=== PATIENT | male | born 1990 | race African-American/Black ===

== ENCOUNTER 2017-09-22 11:23 | Emergency (ER) | payer SELFPAY ==
[2017-09-22 11:31] VITALS: BMI 25.8
--- NOTE | 2017-09-22 12:25 | PDOC ---
History of Present Illness - General History Source: Patient Exam Limitations: No Limitations - History of Present Illness Initial Comments: 09/22/17 14:21 The patient is a 27 year old male, with no significant past medical history, who presents to the emergency department with, epigastric abdominal pain, vomiting and diarrhea for approx. one day. The patient reports he had old milk last night and the abdominal pain, nausea with vomiting and diarrhea began approx. 2 hours after. The patient reports vomiting approx. 8x and describes the vomit as non bloody, non bilious. The patent describes the epigastric abdominal pain as a sharp pain. The patient reports associated symptoms of back pain/ache secondary to the abdominal pain. The patient states he has been unable to tolerate foods and liquids without vomiting. The patient reports his mother has been recently ill for the past couples days with similar symptoms. He denies any recent fevers, chills, headache or dizziness. He denies any recent chest pain or shortness of breath. He denies any recent dysuria, frequency, urgency or hematuria. Allergies: NKA Primary Care Physician: Dr. Mook Purvis. <Dorian Mayberry - Last Filed: 09/22/17 15:03> <Jeramy Eng - Last Filed: 09/22/17 15:20> - General Chief Complaint: Pain, Acute Stated Complaint: ABD PAIN Time Seen by Provider: 09/22/17 11:59 Past History <Dorian Mayberry - Last Filed: 09/22/17 15:03> - Past Medical History Anemia: Yes CVA: No COPD: No DVT: No - Immunization History Immunization Up to Date: Yes - Suicide/Smoking/Psychosocial Hx Smoking History: Never smoked Have you smoked in the past 12 months: No Information on smoking cessation initiated: No Hx Alcohol Use: No Drug/Substance Use Hx: No Substance Use Type: None <Jeramy Eng - Last Filed: 09/22/17 15:20> - Past Medical History Allergies/Adverse Reactions: Allergies Allergy/AdvReac Type Severity Reaction Status Date / Time No Known Allergies Allergy Verified 09/22/17 11:27 Review of Systems - Review of Systems Comments:: 09/22/17 14:21 CONSTITUTIONAL: No reported: Fever, Chills, Diaphoresis, Generalized Weakness, Malaise, Loss of Appetite HEENT: No reported: Rhinorrhea, Nasal Congestion, Throat Pain, Throat Swelling, Difficulty Swallowing, Mouth Swelling, Ear Pain, Eye Pain, Visual Changes CARDIOVASCULAR: No reported: Chest Pain, Syncope, Palpitations, Irregular Heart Rate, Lightheadedness, Peripheral Edema RESPIRATORY: No reported: Cough, Shortness of Breath, SOB with Exertion, Orthopnea, Wheezing , Stridor, Hemoptysis GASTROINTESTINAL: Present: +Epigastric abdominal pain. +Nausea. +Vomiting. +Diarrhea. No reported: Abdominal Distension, Constipation, Melena, Hematochezia GENITOURINARY: No reported: Dysuria, Frequency, Urgency, Hesitancy, Flank Pain, Genital Pain MUSCULOSKELETAL: Present: +Back pain No reported: Myalgia, Arthralgia, Joint Swelling, Neck Pain SKIN: No reported: Rash, Itching, Pallor HEMEATOLOGIC/IMMUNOLOGIC: No reported: Easy Bleeding, Easy Bruising, Lymphadenopathy, Frequent infections ENDOCRINE: No reported: Unexplained Weight Gain, Unexplained Weight Loss, Heat Intolerance , Cold Intolerance NEUROLOGIC: No reported: Headache, Focal Weakness, Paresthesias, Vertigo, Lightheadedness, Unsteady Gait, Seizure, Mental Status Changes, Incontinence PSYCHIATRIC: No reported: Anxiety, Depression <Dorian Mayberry - Last Filed: 09/22/17 15:03> *Physical Exam - Vital Signs Last Vital Signs Temp Pulse Resp BP Pulse Ox 98.0 F 78 16 142/80 100 09/22/17 11:27 09/22/17 11:27 09/22/17 11:27 09/22/17 11:27 09/22/17 11:27 - Physical Exam Comments: 09/22/17 14:22 GENERAL: +Appears uncomfortable. The patient is awake, alert, and fully oriented. HEAD: Normocephalic, atraumatic. EYES: extraocular movements intact, sclera anicteric, conjunctiva clear. ENT: Normal voice, Moist mucous membranes. NECK: Normal range of motion, supple LUNGS: Breath sounds equal, clear to auscultation bilaterally. No wheezes, no rhonchi, no rales. HEART: Regular rate and rhythm, without murmur, rub or gallop. ABDOMEN: +Tenderness to the epigastric region. Soft, normoactive bowel sounds. No guarding, no rebound.No CVA tenderness EXTREMITIES: Normal range of motion, no edema. No clubbing or cyanosis. No cords, erythema, or tenderness. NEUROLOGICAL: No facial assymetry, Normal speech, PSYCH: Normal mood, normal affect. SKIN: Warm, Dry, normal turgor, <Dorian Mayberry - Last Filed: 09/22/17 15:03> - Vital Signs Last Vital Signs Temp Pulse Resp BP Pulse Ox 98.0 F 78 16 142/80 100 09/22/17 11:27 09/22/17 11:27 09/22/17 11:27 09/22/17 11:27 09/22/17 11:27 <Jeramy Eng - Last Filed: 09/22/17 15:20> ED Treatment Course - LABORATORY CBC & Chemistry Diagram: 09/22/17 12:55 09/22/17 12:55 - ADDITIONAL ORDERS Additional order review: Laboratory Results 09/22/17 12:55 Sodium 140 Potassium 5.1 Chloride 106 Carbon Dioxide 28 Anion Gap 6 L BUN 12 Creatinine 1.0 Creat Clearance w eGFR > 60 Random Glucose 99 Calcium 9.2 Total Bilirubin 1.9 H AST 89 H ALT 117 H Alkaline Phosphatase 83 Total Protein 8.7 H Albumin 4.7 Lipase 161 09/22/17 12:55 RBC 5.81 H MCV 83.3 MCHC 32.4 RDW 13.1 MPV 7.2 L Neutrophils % 89.3 H Lymphocytes % 7.0 L Monocytes % 3.2 L Eosinophils % 0.2 Basophils % 0.3 - RADIOLOGY Radiograph Interpretation: 09/22/17 15:03 EXAM#: TYPE/EXAM: RESULT: [id number] US/ABDOMEN US -LIMITED EXAM: Right upper quadrant abdominal sonogram. INDICATION: Abdominal pain. TECHNIQUE: Real-time grayscale and color Doppler sonogram of the right upper quadrant was performed by the technologist. Images are submitted for review. COMPARISON: None available. FINDINGS: The liver is normal in size measuring 16 cm in length with normal hepatic echotexture. No discrete hepatic mass lesion identified. The portal vein is patent, where imaged, with hepatopedal flow. The gallbladder is not hydropic. No evidence of cholelithiasis, gallbladder wall thickening or pericholecystic fluid. The technologist reports a negative sonographic Pinzon sign. There is no evidence of intrahepatic or extrahepatic biliary ductal dilatation. The proximal common bile duct measures 3 mm in diameter. The visualized portions of the pancreatic head and body are grossly unremarkable. The pancreatic tail is obscured by bowel gas and cannot be assessed. The right kidney is normal in size, measuring 10.7 cm in thickness with normal cortical echotexture. No hydronephrosis or shadowing calculus identified within the right kidney. CT is more sensitive in detecting small renal calculi. The upper abdominal aorta and intrahepatic IVC are grossly unremarkable, where imaged. No free fluid identified in the right upper quadrant of the abdomen. IMPRESSION: No evidence of cholelithiasis, acute cholecystitis or biliary ductal dilatation. Reported By: Alex Mendez DO - Medications Given in the ED: ED Medications Discontinued Medications Generic Name Dose Route Start Last Admin Trade Name Freq PRN Reason Stop Dose Admin Al Hydroxide/Mg Hydroxide 30 ml 09/22/17 12:32 09/22/17 12:50 Mylanta Suspension - PO 09/22/17 12:33 30 mg ONCE ONE Administration Famotidine/Sodium Chloride 20 50 mls @ 100 mls/hr 09/22/17 12:32 09/22/17 13: 11 mg/ Miscellaneous IVPB 09/22/17 13:01 100 mls/hr ONCE ONE Administration Sodium Chloride 1,000 mls @ 1,000 mls/hr 09/22/17 12:32 09/22/17 12:40 Normal Saline - IV 09/22/17 13:31 1,000 mls/hr .Q1H ONE Administration Morphine Sulfate 4 mg 09/22/17 13:16 09/22/17 13:25 Morphine Injection - IVPUSH 09/22/17 13:17 4 mg ONCE ONE Administration Ondansetron HCl 4 mg 09/22/17 12:53 09/22/17 13:11 Zofran Injection IVPB 09/22/17 12:54 4 mg ONCE ONE Administration <Dorian Mayberry - Last Filed: 09/22/17 15:03> - LABORATORY CBC & Chemistry Diagram: 09/22/17 12:55 09/22/17 12:55 <Jeramy Eng - Last Filed: 09/22/17 15:20> Medical Decision Making - Medical Decision Making 09/22/17 12:25 27Y M no pmhx presents with n/v/d since yesterday associated with crampy epigastric pain radiating to the back without associated feve/rchills. No blood in vomit or diarrhea. pt notes the pain in the abdomen is crampy and radiates to the back. diarrhea is very watery in nature, not black or bloody. Vomiting is watery/food contents, no coffeeground emesis or blood. pt staets he had some milk that has been sitting out, mom also had similar sypmtoms without as much abdominal pain a few days ago. no recent travel. on exam pt appears to be uncomfortable, mildly tender epigastrium ddx gastroenteritis, pancreatitis, gastritisi will ck cbc, cmp, lipase will treat symptomatically with zofran pepcid, maalox, fluids will reassess A portion of this note was documented by scribe services under my direction. I have reviewed the details of the note, within reason, and agree with the documentation with the following case summary and management plan written by me 09/22/17 13:47 pts labs reviewed noted for mild left shift w/o leukocytosis tbili and lfts elevated will obtai GB US to r/o obstructed stone 09/22/17 15:17 The pt is feeling better. he is tolerating oral intake. abd is soft nontender his US is neg for any acute patholgoy. will have the pt take zofran prn for nausea will have the pt fu with PMD to have his liver enzymes repeated. return precautions were discussed I discussed the physical exam findings, ancillary test results and final diagnoses with the patient. I answered all of the patient's questions. The patient was satisfied with the care received and felt comfortable with the discharge plan and treatment plan. The patient will call their primary care physician within 24 hours to arrange follow-up and will return to the Emergency Department with any new, persistent or worsening symptoms. <Jeramy Eng - Last Filed: 09/22/17 15:20> *DC/Admit/Observation/Transfer - Attestations Scribe Attestion: 09/22/17 14:22 Documentation prepared by Dorian Mayberry, acting as medical secretary receptionist for Jeramy Eng MD. <Dorian Mayberry - Last Filed: 09/22/17 15:03> - Discharge Dispostion Admit: No <Jeramy Eng - Last Filed: 09/22/17 15:20> Diagnosis at time of Disposition: Gastroenteritis, Abnormal liver function test - Discharge Dispostion Disposition: HOME Condition at time of disposition: Improved - Referrals Referrals: Mook Purvis [Primary Care Provider] - - Patient Instructions Printed Discharge Instructions: DI for Viral Gastroenteritis -- Adult Additional Instructions: Return to the emergency department immediately with ANY new, persistent or worsening symptoms including worsening abdominal pain, fevers, inability to tolerate oral intake, chest pain, shortness of breath or any other concerns. 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 A copy of your ultrasound results were included Stay well hydrated. You MUST call and follow up with your doctor tomorrow. Your emergency department visit is not complete without a followup with your doctor for reevaluation. Please make sure your doctor reviews the results of your emergency evaluation. Print Language: HUNGARIAN - Post Discharge Activity
[2017-09-22] MEDS ORDERED: MAG HYDROX/AL HYDROX/SIMETH 355 ML ORAL.SUSP PO ONE (12:32)
[2017-09-22] MEDS ORDERED: SODIUM CHLORIDE 1,000 ML IV ONE (12:32)
[2017-09-22] MEDS ORDERED: FAMOTIDINE 20 MG/50 ML IVPB 20 MG in PREMIX 50 IVPB ONE (12:32)
[2017-09-22] MEDS ORDERED: FAMOTIDINE 20 MG/50 ML IVPB 20 MG/50 ML MG IVPB ONE (12:42)
[2017-09-22] MEDS ORDERED: MAG HYDROX/AL HYDROX/SIMETH 30 ML UNIT-DOSE CUP ONE (12:42)
[2017-09-22] MEDS ORDERED: ONDANSETRON 4 MG/2 ML VIAL IVPB ONE (12:53)
[2017-09-22] MEDS ORDERED: ONDANSETRON 4 MG/2 ML VIAL ONE (12:55)
[2017-09-22 13:05] LABS: BASO % 0.3 % (0-2.0); EOS % 0.2 % (0-4.5); HEMATOCRIT 48.4 % (35.4-49); HEMOGLOBIN 15.7 GM/dL (11.7-16.9); MCHC 32.4 g/dl (32.0-35.9); MEAN CELL VOLUME 83.3 fl (80-96); MEAN PLT VOLUME 7.2 fl (7.5-11.1); MONO % 3.2 % (3.8-10.2); NEUT % 89.3 % (42.8-82.8); PLATELET COUNT 252 K/MM3 (134-434); RBC 5.81 M/mm3 (4.00-5.60); RDW 13.1 % (11.9-15.9); WHITE BLOOD COUNT 9.7 K/mm3 (4.0-10.0)
[2017-09-22] MEDS ORDERED: morphine CARPU-JECT 4 MG/1 ML DISP.SYRIN IVPUSH ONE (13:16)
[2017-09-22] MEDS ORDERED: morphine CARPU-JECT 10 MG/1 ML DISP.SYRIN ONE (13:23)
[2017-09-22 13:37] LABS: ALBUMIN 4.7 g/dl (3.4-5.0); ALK PHOS 83 U/L (45-117); ANION GAP 6 (8-16); BILIRUBIN,TOTAL 1.9 mg/dL (0.2-1.0); BLOOD UREA NITROGEN 12 mg/dL (7-18); CALCIUM 9.2 mg/dL (8.5-10.1); CHLORIDE 106 mmol/L (98-107); CO2 28 mmol/L (21-32); GLUCOSE,RANDOM 99 mg/dL (74-106); LIPASE 161 U/L (73-393); SGPT/ALT 117 U/L (12-78); SODIUM 140 mmol/L (136-145); TOT PROT 8.7 g/dl (6.4-8.2)
[2017-09-22 13:45] LABS: POTASSIUM 5.1 mmol/L (3.5-5.1); SGOT/AST 89 U/L (15-37)
[2017-09-22 13:48] LABS: URINE APPEARANCE CLEAR; URINE BILIRUBIN NEGATIVE (NEGATIVE); URINE BLOOD NEGATIVE (NEGATIVE); URINE COLOR YELLOW; URINE GLUCOSE (UA) NEGATIVE (NEGATIVE); URINE KETONE NEGATIVE (NEGATIVE); URINE LEUK ESTERASE NEGATIVE (NEGATIVE); URINE NITRITE NEGATIVE (NEGATIVE); URINE PROTEIN NEGATIVE (NEGATIVE); URINE UROBILINOGEN NEGATIVE mg/dL (0.2-1.0)
[2017-09-22 15:40] VITALS: BP 128/76; PULSE 81; TEMP 98.1
== END 2017-09-22 15:40 | disposition home or self-care (01) ==
LOC: JER 11:23
PROC: 3E0337Z Introduction of Electrolytic and Water Balance Substance into Peripheral Vein, Percutaneous Approach (ICD-10-PCS; principal; 2017-09-22)
PROC: 3E033GC Introduction of Other Therapeutic Substance into Peripheral Vein, Percutaneous Approach (ICD-10-PCS; 2017-09-22)
PROC: 3E033NZ Introduction of Analgesics, Hypnotics, Sedatives into Peripheral Vein, Percutaneous Approach (ICD-10-PCS; 2017-09-22)
PROC: 3E033GC Introduction of Other Therapeutic Substance into Peripheral Vein, Percutaneous Approach (ICD-10-PCS; 2017-09-22)
DX: K52.9 Noninfective gastroenteritis and colitis, unspecified (principal); R94.5 Abnormal results of liver function studies
CPT/HCPCS: 36415; 76705-TC; 80053; 81003; 83690; 85025; 99283-25

== ENCOUNTER 2017-11-16 19:38 | Emergency (ER) | payer OTHER ==
[2017-11-16 19:46] VITALS: TEMP 98.5; BMI 26.6
--- NOTE | 2017-11-16 19:48 | PDOC ---
Rapid Medical Evaluation Chief Complaint: Pain Time Seen by Provider: 11/16/17 19:45 Medical Evaluation: Allergies Allergy/AdvReac Type Severity Reaction Status Date / Time No Known Allergies Allergy Verified 11/16/17 19:43 11/16/17 19:45 I have performed a brief in-person evaluation of the patient. The patient presents with chief complaint of: returned to ed due to sweats and weakness. States seen in ed 2 days ago, still with vomiting since returning home and epigastric pain. Denies diarrhea. Pertinent physical exam findings are: NAD lungs clear bilaterally heart s1s2 abdomen: tenderness in generalized abdomen I have ordered the following: none The patient will proceed to the ED for further evaluation. Discharge Disposition - Referrals Referrals: Mook Purvis [Primary Care Provider] - - Patient Instructions - Post Discharge Activity
[2017-11-16] MEDS ORDERED: ONDANSETRON 4 MG/2 ML VIAL IVPUSH STA (20:43)
[2017-11-16] MEDS ORDERED: SODIUM CHLORIDE 1,000 ML IV STA (20:43)
[2017-11-16] MEDS ORDERED: ONDANSETRON 4 MG/2 ML VIAL ONE (20:50)
[2017-11-16 21:24] LABS: ANION GAP 8 (8-16); BILIRUBIN,TOTAL 0.8 mg/dL (0.2-1.0); BLOOD UREA NITROGEN 11 mg/dL (7-18); CALCIUM 8.3 mg/dL (8.5-10.1); CHLORIDE 104 mmol/L (98-107); CO2 25 mmol/L (21-32); CREATININE 0.9 mg/dL (0.7-1.3); GLUCOSE,RANDOM 87 mg/dL (74-106); LIPASE 180 U/L (73-393); POTASSIUM 3.6 mmol/L (3.5-5.1); SGOT/AST 27 U/L (15-37); SGPT/ALT 38 U/L (12-78); SODIUM 137 mmol/L (136-145); TOT PROT 7.6 g/dl (6.4-8.2)
--- NOTE | 2017-11-16 21:24 | PDOC ---
History of Present Illness - General History Source: Patient Exam Limitations: No Limitations - History of Present Illness Initial Comments: 11/16/17 23:17 The patient is a 27 year old male, with a significant past medical history who presents to the emergency department with clavicular pain, epigastric pain and diarrhea (mucoid, nonbloody) for the past 4 days. Patient reports epigastric pain is exacerbated with positional changes and is unable to sleep comfortably. Patient endorses chills, nausea and vomiting (nonbilious,nonbloody) and increased belching. Patient was seen in the ED 2 days ago with the same symptoms and a negative abdominal CT scan. Patient reports symptoms have not resolved and reports to the ED for further evaluation. Patient denies chest pain, headache or dizziness. Patient denies fever, constipation. Patient denies dysuria, frequency, urgency or hematuria. Patient denies sick contacts or recent travel. <Jess Kennedy - Last Filed: 11/17/17 00:28> <Marie Jenkins - Last Filed: 11/17/17 00:42> - General Chief Complaint: Pain Stated Complaint: ABD PAIN Time Seen by Provider: 11/16/17 19:45 Past History <Jess Kennedy - Last Filed: 11/17/17 00:28> - Past Medical History Anemia: Yes CVA: No COPD: No DVT: No - Immunization History Immunization Up to Date: Yes - Suicide/Smoking/Psychosocial Hx Smoking History: Never smoked Have you smoked in the past 12 months: No Hx Alcohol Use: No Drug/Substance Use Hx: No Substance Use Type: None <Marie Jenkins - Last Filed: 11/17/17 00:42> - Past Medical History Allergies/Adverse Reactions: Allergies Allergy/AdvReac Type Severity Reaction Status Date / Time No Known Allergies Allergy Verified 11/16/17 19:43 Home Medications: Ambulatory Orders Ondansetron HCl [Zofran] 4 mg PO QID PRN #16 tablet 09/22/17 Ondansetron [Zofran Odt -] 4 mg SL BID PRN #14 od.tablet 11/17/17 Review of Systems - Review of Systems Able to Perform ROS?: Yes Comments:: 11/16/17 23:17 CONSTITUTIONAL: Absent: fever, chills, diaphoresis, generalized weakness, malaise, loss of appetite HEENT: Absent: rhinorrhea, nasal congestion, throat pain, throat swelling, difficulty swallowing, mouth swelling, ear pain, eye pain, visual changes CARDIOVASCULAR: Absent: chest pain, syncope, palpitations, irregular heart rate, lightheadedness , peripheral edema RESPIRATORY: Absent: cough, shortness of breath, dyspnea with exertion, orthopnea, wheezing, stridor, hemoptysis GASTROINTESTINAL: +epigastric pain, nausea, vomiting, diarrhea. Absent: abdominal distension, constipation, melena, hematochezia GENITOURINARY: Absent: dysuria, frequency, urgency, hesitancy, hematuria, flank pain, genital pain MUSCULOSKELETAL: +bilateral clavicular pain. Absent: myalgia, arthralgia, joint swelling SKIN: Absent: rash, itching, pallor HEMATOLOGIC/IMMUNOLOGIC: Absent: easy bleeding, easy bruising, lymphadenopathy, frequent infections ENDOCRINE: Absent: unexplained weight gain, unexplained weight loss, heat intolerance, cold intolerance NEUROLOGIC: Absent: headache, focal weakness or paresthesias, dizziness, unsteady gait, seizure, mental status changes, bladder or bowel incontinence PSYCHIATRIC: Absent: anxiety, depression, suicidal or homicidal ideation, hallucinations. <Jess Kennedy - Last Filed: 11/17/17 00:28> *Physical Exam - Vital Signs Last Vital Signs Temp Pulse Resp BP Pulse Ox 98.5 F 71 18 138/77 98 11/16/17 19:44 11/16/17 19:44 11/16/17 19:44 11/16/17 19:44 11/16/17 19:44 - Physical Exam Comments: 11/16/17 23:17 GENERAL: Well developed, well nourished. Awake and alert. No acute distress. HEENT: +Dry mucous membranes Normocephalic, atraumatic. PERRLA, EOMI. No conjunctival pallor. Sclera are non- icteric. . Oropharynx is clear. NECK: Supple. Full ROM. No JVD. Carotid pulses 2+ and symmetric, without bruits. No thyromegaly. No lymphadenopathy. CARDIOVASCULAR: Regular rate and rhythm. No murmurs, rubs, or gallops. Distal pulses are 2+ and symmetric. PULMONARY: No evidence of respiratory distress. Lungs clear to auscultation bilaterally. No wheezing, rales or rhonchi. ABDOMINAL: +RUQ tenderness to deep palpation. Soft. Non-tender. Non-distended. No rebound or guarding. No organomegaly. Normoactive bowel sounds. MUSCULOSKELETAL Normal range of motion at all joints. No bony deformities or tenderness. No CVA tenderness. EXTREMITIES: No cyanosis. No clubbing. No edema. No calf tenderness. SKIN: Warm and dry. Normal capillary refill. No rashes. No jaundice. NEUROLOGICAL: Alert, awake, appropriate. Cranial nerves 2-12 intact. No deficits to light touch and temperature in face, upper extremities and lower extremities. No motor deficits in the in face, upper extremities and lower extremities. Normoreflexic in the upper and lower extremities. Normal speech. Toes are down-going bilaterally. Gait is normal without ataxia. PSYCHIATRIC: Cooperative. Good eye contact. Appropriate mood and affect. <Jess Kennedy - Last Filed: 11/17/17 00:28> - Vital Signs Last Vital Signs Temp Pulse Resp BP Pulse Ox 98.5 F 71 18 138/77 98 11/16/17 19:44 11/16/17 19:44 11/16/17 19:44 11/16/17 19:44 11/16/17 19:44 <Marie Jenkins - Last Filed: 11/17/17 00:42> ED Treatment Course - LABORATORY CBC & Chemistry Diagram: 11/16/17 20:50 11/16/17 20:50 - ADDITIONAL ORDERS Additional order review: Laboratory Results 11/16/17 11/16/17 22:25 20:50 Sodium 137 Potassium 3.6 D Chloride 104 Carbon Dioxide 25 Anion Gap 8 BUN 11 Creatinine 0.9 Creat Clearance w eGFR > 60 Random Glucose 87 Calcium 8.3 L Total Bilirubin 0.8 D AST 27 D ALT 38 D Alkaline Phosphatase 73 Total Protein 7.6 Albumin 4.0 Lipase 180 Urine Color [place] Urine Appearance Clear Urine pH 5.0 Ur Specific [place] 1.034 Urine Protein 1+ H Urine Glucose (UA) Negative Urine Ketones Trace H Urine Blood Negative Urine Nitrite Negative Urine Bilirubin Negative Urine Urobilinogen Negative Ur Leukocyte Esterase Negative Urine WBC (Auto) 2 Urine RBC (Auto) 5 Ur Epithelial Cells Rare Urine Mucus Many 11/16/17 20:50 RBC 5.51 MCV 80.7 MCHC 34.1 RDW 12.5 MPV 7.2 L Neutrophils % 40.0 L D Lymphocytes % 43.0 H D Monocytes % 14.8 H D Eosinophils % 1.5 D Basophils % 0.7 - Medications Given in the ED: ED Medications Discontinued Medications Generic Name Dose Route Start Last Admin Trade Name Freq PRN Reason Stop Dose Admin Al Hydroxide/Mg Hydroxide 30 ml 11/16/17 22:02 11/16/17 22:40 Mylanta Suspension - PO 11/16/17 22:03 30 ml ONCE ONE Administration Sodium Chloride 1,000 mls @ 1,000 mls/hr 11/16/17 20:43 11/16/17 20:55 Normal Saline - IV 11/16/17 21:42 1,000 mls/hr ASDIR STA Administration Ondansetron HCl 4 mg 11/16/17 20:43 11/16/17 20:56 Zofran Injection IVPUSH 11/16/17 20:44 4 mg ONCE STA Administration Pantoprazole Sodium 40 mg 11/16/17 22:02 11/16/17 22:21 Protonix Iv IVPUSH 11/16/17 22:03 40 mg ONCE ONE Administration <Jess Kennedy - Last Filed: 11/17/17 00:28> - LABORATORY CBC & Chemistry Diagram: 11/16/17 20:50 11/16/17 20:50 - Medications Given in the ED: ED Medications Discontinued Medications Generic Name Dose Route Start Last Admin Trade Name Freq PRN Reason Stop Dose Admin Ondansetron HCl 4 mg 11/16/17 20:43 11/16/17 20:56 Zofran Injection IVPUSH 11/16/17 20:44 4 mg ONCE STA Administration <Marie Jenkins - Last Filed: 11/17/17 00:42> *DC/Admit/Observation/Transfer - Attestations Scribe Attestion: 11/16/17 23:17 Documentation prepared by Jess Kennedy, acting as medical education coordinator for Marie Jenkins MD <Jess Kennedy - Last Filed: 11/17/17 00:28> <Marie Jenkins - Last Filed: 11/17/17 00:42> Diagnosis at time of Disposition: Abdominal pain Qualifiers: Abdominal location: epigastric Qualified Code(s): R10.13 - Epigastric pain Diarrhea Qualifiers: Diarrhea type: unspecified type Qualified Code(s): R19.7 - Diarrhea, unspecified - Discharge Dispostion Disposition: HOME Condition at time of disposition: Stable - Prescriptions Prescriptions: Ondansetron [Zofran Odt -] 4 mg SL BID PRN #14 od.tablet PRN Reason: Nausea And/Or Vomiting - Referrals Referrals: Mook Purvis [Primary Care Provider] - Donis Molina MD [Staff Physician] - - Patient Instructions Printed Discharge Instructions: DI for Diarrhea and Traveler's Diarrhea -- Adult Additional Instructions: please followup with your doctor You have been given the name of a transfer and line up worker to see if your symptoms persist Return for worsening symptoms - Post Discharge Activity
[2017-11-16 21:25] LABS: ALK PHOS 73 U/L (45-117)
[2017-11-16 21:27] LABS: BASO % 0.7 % (0-2.0); EOS % 1.5 % (0-4.5); HEMATOCRIT 44.5 % (35.4-49); HEMOGLOBIN 15.2 GM/dL (11.7-16.9); MCH 27.6 pg (25.7-33.7); MCHC 34.1 g/dl (32.0-35.9); MEAN CELL VOLUME 80.7 fl (80-96); MEAN PLT VOLUME 7.2 fl (7.5-11.1); MONO % 14.8 % (3.8-10.2); PLATELET COUNT 217 K/MM3 (134-434); RBC 5.51 M/mm3 (4.00-5.60); RDW 12.5 % (11.9-15.9)
[2017-11-16] MEDS ORDERED: MAG HYDROX/AL HYDROX/SIMETH -MYLANTA- ORAL SUSPENSION PO ONE (22:02)
[2017-11-16] MEDS ORDERED: PANTOPRAZOLE SODIUM 40 MG VIAL IVPUSH ONE (22:02)
[2017-11-16] MEDS ORDERED: PANTOPRAZOLE SODIUM 40 MG VIAL ONE (22:05)
[2017-11-16] MEDS ORDERED: MAG HYDROX/AL HYDROX/SIMETH 30 ML UNIT-DOSE CUP ONE (22:05)
[2017-11-16 22:39] LABS: URINE APPEARANCE CLEAR; URINE BILIRUBIN NEGATIVE (NEGATIVE); URINE BLOOD NEGATIVE (NEGATIVE); URINE COLOR AMBER; URINE GLUCOSE (UA) NEGATIVE (NEGATIVE); URINE KETONE TRACE (NEGATIVE); URINE LEUK ESTERASE NEGATIVE (NEGATIVE); URINE NITRITE NEGATIVE (NEGATIVE); URINE UROBILINOGEN NEGATIVE mg/dL (0.2-1.0)
[2017-11-16 22:52] LABS: URINE PROTEIN 1+ (NEGATIVE)
[2017-11-16 22:53] LABS: EPI CELLS RARE /HPF (FEW); URINE MUCUS MANY
[2017-11-17] MEDS ORDERED: MAG HYDROX/AL HYDROX/SIMETH 30 ML UNIT-DOSE CUP ONE (00:02)
[2017-11-17] MEDS ORDERED: MAG HYDROX/AL HYDROX/SIMETH 30 ML UNIT-DOSE CUP PO ONE (00:09)
[2017-11-17] MEDS ORDERED: LOPERAMIDE HCL 2 MG CAPSULE ONE (00:19)
[2017-11-17] MEDS ORDERED: LOPERAMIDE HCL 2 MG CAPSULE PO ONE (00:23)
[2017-11-17] MEDS ORDERED: ACETAMINOPHEN 500 MG TABLET (FP) PO STA (00:30)
[2017-11-17] MEDS ORDERED: ACETAMINOPHEN 325 MG TABLET (FP) ONE (00:35)
[2017-11-17 00:56] VITALS: BP 111/71; PULSE 69
== END 2017-11-17 00:55 | disposition home or self-care (01) ==
LOC: JER 19:38
PROC: 3E0337Z Introduction of Electrolytic and Water Balance Substance into Peripheral Vein, Percutaneous Approach (ICD-10-PCS; principal; 2017-11-16)
PROC: 3E033GC Introduction of Other Therapeutic Substance into Peripheral Vein, Percutaneous Approach (ICD-10-PCS; 2017-11-16)
PROC: 3E033GC Introduction of Other Therapeutic Substance into Peripheral Vein, Percutaneous Approach (ICD-10-PCS; 2017-11-16)
DX: R10.13 Epigastric pain (principal)
CPT/HCPCS: 36415; 71045-TC-FY; 80053; 81003; 81015; 83690; 85025; 96361; 96374; 96375; 99283-25; J7030

== ENCOUNTER 2022-03-03 17:45 | Emergency (ER) | payer OTHER ==
[2022-03-03 17:55] VITALS: BP 129/91; PULSE 57; TEMP 98.3; BMI 27.3
[2022-03-03] MEDS ORDERED: DIPHTH,PERTUSS(ACELL),TET 0.5 ML DISP.SYRIN IM ONE ×2 (19:55→19:57)
[2022-03-03] MEDS ORDERED: KETOROLAC TROMETHAMINE 30 MG/1 ML VIAL ONE (21:17)
[2022-03-03] MEDS ORDERED: KETOROLAC TROMETHAMINE 30 MG/1 ML VIAL IM ONE (21:17)
[2022-03-03] MEDS ORDERED: BACITRACIN 15 GM TUBE TOPICAL OINTMENT ONE (21:17)
[2022-03-04] MEDS ORDERED: BACITRACIN/POLYMYXIN B SULFATE 15 GM TUBE TP SCH (10:00)
== END 2022-03-03 21:24 | disposition home or self-care (01) ==
LOC: JER 17:45 → JERFT 17:45
PROC: 3E023GC Introduction of Other Therapeutic Substance into Muscle, Percutaneous Approach (ICD-10-PCS; principal; 2022-03-03)
PROC: 3E0234Z Introduction of Serum, Toxoid and Vaccine into Muscle, Percutaneous Approach (ICD-10-PCS; 2022-03-03)
DX: S09.90XA Unspecified injury of head, initial encounter (principal); Y00.XXXA Assault by blunt object, initial encounter
CPT/HCPCS: 70450-TC; 90471; 90715; 96372; 99284-25

== ENCOUNTER 2022-04-01 21:47 | Emergency (ER) | payer OTHER ==
[2022-04-01 21:56] VITALS: BP 162/113; PULSE 105; RESP 20; TEMP 98.2; BMI 28.0
[2022-04-02] MEDS ORDERED: LIDOCAINE HCL 1%, 10 MG/ML (20ML VIAL) ONE (00:44)
== END 2022-04-02 02:03 | disposition home or self-care (01) ==
LOC: JER 21:47
PROC: 0HQFXZZ Repair Right Hand Skin, External Approach (ICD-10-PCS; principal; 2022-04-01)
PROC: 0HQEXZZ Repair Left Lower Arm Skin, External Approach (ICD-10-PCS; 2022-04-01)
DX: S51.812A Laceration without foreign body of left forearm, initial encounter (principal); S00.83XA Contusion of other part of head, initial encounter; S61.411A Laceration without foreign body of right hand, initial encounter; T59.3X3A Toxic effect of lacrimogenic gas, assault, initial encounter; Y04.8XXA Assault by other bodily force, initial encounter
CPT/HCPCS: 70450-TC; 72125-TC; 73130-TC-RT-FY; 99285-25

== ENCOUNTER 2024-05-12 19:30 | Emergency (ER) | payer BC, OTHER ==
[2024-05-12 19:43] VITALS: BP 122/78; BMI 26.6
[2024-05-12] MEDS ORDERED: LIDOCAINE 4% PATCH TP ONE (21:02)
[2024-05-12] MEDS ORDERED: KETOROLAC TROMETHAMINE 30 MG/1 ML VIAL ONE (21:03)
[2024-05-12] MEDS ORDERED: METHOCARBAMOL 500 MG TABLET ONE (21:03)
[2024-05-12] MEDS: METHOCARBAMOL 500 MG TABLET PO ONE (21:16)
[2024-05-12] MEDS: KETOROLAC TROMETHAMINE 30 MG/1 ML VIAL IM ONE (21:16)
[2024-05-12] MEDS: LIDOCAINE 4% PATCH TP ONE (21:16)
[2024-05-12] MEDS ORDERED: LIDOCAINE PATCH REMOVAL MC SCH (22:00)
[2024-05-12 22:59] VITALS: PULSE 78; RESP 19; TEMP 97.8
[2024-05-12 23:13] LABS: HIV INTERPRETATION NEGATIVE (NEGATIVE)
== END 2024-05-12 23:00 | disposition home or self-care (01) ==
LOC: JER 19:30
PROC: 3E0233Z Introduction of Anti-inflammatory into Muscle, Percutaneous Approach (ICD-10-PCS; principal; 2024-05-12)
DX: M54.6 Pain in thoracic spine (principal); M54.2 Cervicalgia; R51.9 Headache, unspecified; V43.52XA Car driver injured in collision with other type car in traffic accident, initial encounter; Y92.410 Unspecified street and highway as the place of occurrence of the external cause
CPT/HCPCS: 36415; 70450-TC; 72125-TC; 86803; 87389; 99284-25